=== PATIENT | male | born 1990 | race Caucasian/White ===

== ENCOUNTER 2019-01-14 15:31 | Emergency (ER) | payer OTHER, SELFPAY ==
[2019-01-14] MEDS ORDERED: METOPROLOL TAR 25 MG TAB ONE (16:47)
[2019-01-14] MEDS ORDERED: ASPIRIN 81 MG CHEWABLE TABLET ONE (16:47)
[2019-01-14 16:53] LABS: Absolute Lymphocytes (CBC) 2.6 K/uL (0.7-4.9); Absolute Monocytes 0.7 K/uL (0.1-1.3); Absolute Neutrophil 7.3 K/uL (1.8-8.0); Basophils % 0.5 % (0-1.3); Eosinophils % 1.9 % (0-4.4); Hematocrit 44.5 % (39.6-49.0); Lymphocytes % 24.2 % (15.3-44.8); Monocytes % 6.2 % (3.3-12.3); RBC Red Blood Cell Count 5.09 M/uL (4.33-5.43)
--- NOTE | 2019-01-14 16:53 | RAD REPORT ---
EXAM DESCRIPTION: RAD - Chest Single View - 01/14/2019 4:45 pm CLINICAL HISTORY: CHEST PAIN Chest pain. COMPARISON: Outpt Chest Pa/Lat (2 Views) dated 02/09/2017 FINDINGS: Portable technique limits examination quality. The lungs are underinflated but grossly clear. The heart is normal in size. No displaced fractures. IMPRESSION: No acute intrathoracic process suspected.
[2019-01-14 17:08] LABS: Protime INR 1.03
[2019-01-14 17:11] LABS: ALT/SGPT 50 U/L (12-78); AST/SGOT 24 U/L (15-37); Alkaline Phosphatase 93 U/L (45-117); BUN Blood Urea Nitrogen 13 mg/dL (7-18); Bicarbonate 30 mmol/L (21-32); Bilirubin Direct < 0.1 mg/dL (0-0.2); Bilirubin Total 0.3 mg/dL (0.2-1.0); Glucose Level 106 mg/dL (74-106); Magnesium 2.2 mg/dL (1.8-2.4); NT PRO-BNP 11 pg/mL (<125); Potassium 4.3 mmol/L (3.5-5.1); Sodium Level 139 mmol/L (136-145); Troponin (Emerg Dept Use Only) < 0.02 ng/mL (0.0-0.045)
--- NOTE | 2019-01-14 17:21 | EKG ---
Test Date: 2019-01-14 Test Time: 15:42:42 Commercial Leasing Agent: LILA MEASUREMENT RESULTS: Intervals: Rate: 75 NE: 156 QRSD: 102 QT: 376 QTc: 419 [place]: P: 30 NE: 156 QRS: 107 T: 42 INTERPRETIVE STATEMENTS: Normal sinus rhythm Rightward axis Incomplete right bundle branch block Borderline ECG No previous ECG available for comparison Electronically Signed On 01-14-19 17:20:53 HEEL CURVER by Daryl Yen
--- NOTE | 2019-01-14 17:38 | ER ---
Nurse's Notes [facility] Name: rFansisco Sebastian Age: 28 yrs Sex: Male : 1990 Arrival Date: 01/14/2019 Time: 15:33 Bed 25 Private MD: Diagnosis: Other chest pain;Essential (primary) hypertension;Obesity, unspecified;Tobacco abuse counseling;Tobacco use Presentation: 01/14 15:35 Presenting complaint: Patient states: left-sided chest pain radiating to left shoulder aa5 that began approximately 3 hours ago. Pt denies SOB. Transition of care: patient was not received from another setting of care. Onset of symptoms was December 2018. Risk Assessment: Do you want to hurt yourself or someone else? Patient reports no desire to harm self or others. Initial Sepsis Screen: Does the patient meet any 2 criteria? No. Patient's initial sepsis screen is negative. Does the patient have a suspected source of infection? No. Patient's initial sepsis screen is negative. Care prior to arrival: None. 15:35 Method Of Arrival: Ambulatory aa5 15:35 Acuity: OZZY 3 aa5 Historical: - Allergies: 15:36 No Known Allergies; aa5 - Home Meds: 15:36 None [Active]; aa5 - PMHx: 15:36 None; aa5 - PSHx: 15:36 fungus removal from groin area; aa5 - Immunization history:: Flu vaccine status is unknown. - Social history:: Smoking status: Patient uses tobacco products, smokes one pack cigarettes per day. - Ebola Screening: : No symptoms or risks identified at this time. - Family history:: not pertinent. Screenin:30 Abuse screen: Denies threats or abuse. Denies injuries from another. Nutritional ca1 screening: No deficits noted. Tuberculosis screening: No symptoms or risk factors identified. Fall Risk None identified. Assessment: 16:30 General: Appears in no apparent distress. comfortable, Behavior is calm, cooperative, ca1 appropriate for age. Pain: Complains of pain in chest Pain radiates to left trapezius Pain currently is 0 out of 10 on a pain scale. at worst was 6 out of 10 on a pain scale. Pain began 4 hours ago. Neuro: Level of Consciousness is awake, alert, obeys commands, Oriented to person, place, time, situation. Cardiovascular: Heart tones S1 S2 present Capillary refill < 3 seconds Patient's skin is warm and dry. Respiratory: Airway is patent Respiratory effort is even, unlabored, Respiratory pattern is regular, symmetrical, Breath sounds are clear bilaterally. GI: Abdomen is round non-distended, Bowel sounds present X 4 quads. Abd is soft and non tender X 4 quads. : No signs and/or symptoms were reported regarding the genitourinary system. EENT: No signs and/or symptoms were reported regarding the EENT system. Derm: Skin is intact, Skin is pink, warm \T\ dry. Musculoskeletal: Circulation, motion, and sensation intact. Capillary refill < 3 seconds. 17:35 Reassessment: Patient appears in no apparent distress at this time. Patient and/or ca1 family updated on plan of care and expected duration. Pain level reassessed. Patient is alert, oriented x 3, equal unlabored respirations, skin warm/dry/pink. Patient states feeling better. Vital Signs: 15:36 BP 144 / 101; Pulse 96; Resp 20 S; Temp 98.9(TE); Pulse Ox 100% on R/A; Weight 158.76 aa5 kg (R); Height 6 ft. 3 in. (190.50 cm) (R); Pain 1/10; 16:32 BP 121 / 84; Pulse 71; Resp 18; Pulse Ox 100% on R/A; ca1 15:36 Body Mass Index 43.75 (158.76 kg, 190.50 cm) aa5 ED Course: 15:33 Patient arrived in ED. aa5 15:35 Arm band placed on. aa5 15:36 Triage completed. aa5 16:02 Mahesh Marquez MD is Attending Physician. [facility] 16:04 EKG done, by food technician. reviewed by Mahesh Marquez MD. sm3 16:20 Beryl Dubon, RN is Primary Nurse. ca1 16:30 Patient has correct armband on for positive identification. Placed in gown. Bed in low ca1 position. Call light in reach. Side rails up X 1. quality assurance monitor chassis on. Pulse ox on. NIBP on. Warm blanket given. 16:30 Patient maintains SpO2 saturation greater than 95% on room air. ca1 16:46 Inserted saline lock: 20 gauge in left antecubital area, using aseptic technique. lt1 16:46 Initial lab(s) drawn, by me, sent to lab. lt1 16:49 XRAY Chest (1 view) In Process Unspecified. EDMS 17:36 Chapin Epps MD is Referral Physician. [facility] 17:55 No provider procedures requiring assistance completed. IV discontinued, intact, ca1 bleeding controlled, No redness/swelling at site. Pressure dressing applied. Administered Medications: 16:33 Drug: Lopressor 25 mg Route: PO; ca1 17:51 Follow up: Response: No adverse reaction; Pain is decreased ca1 16:34 Drug: Aspirin Chewable Tablet 324 mg Route: PO; ca1 17:51 Follow up: Response: No adverse reaction; Pain is decreased ca1 Outcome: 17:36 Discharge ordered by MD. [facility] 17:55 Discharged to home ambulatory. ca1 17:55 Condition: stable 17:55 Discharge instructions given to patient, Instructed on discharge instructions, follow up and referral plans. medication usage, Demonstrated understanding of instructions, follow-up care, medications, Prescriptions given X 1. 17:56 Patient left the ED. ca1 Signatures: Dispatcher [employer] EDMS Mahesh Marquez MD MD cha Calderon, Audri, RN RN aa5 Edwige Trimble 3 Beryl Dubon RN RN ca1 Taylor Russell lt1
--- NOTE | 2019-01-14 17:38 | EDPHYS ---
Physician Documentation [facility] Name: Fransisco Sebastian Age: 28 yrs Sex: Male : 1990 Arrival Date: 01/14/2019 Time: 15:33 Bed 25 Private MD: ED Physician Mahesh Marquez HPI: 01/14 16:29 This 28 yrs old Male presents to ER via Ambulatory with complaints of Chest angel Pain. 16:29 The patient or guardian reports chest pain that is located primarily in the anterior angel chest wall, left. The pain radiates to Associated signs and symptoms: The patient has no apparent associated signs or symptoms. The chest pain is described as squeezing. Duration: The patient or guardian reports multiple episodes, with no pattern. Severity of pain: At its worst the pain was mild in the emergency department the pain is unchanged. The patient has not experienced similar symptoms in the past. Historical: - Allergies: 15:36 No Known Allergies; aa5 - Home Meds: 15:36 None [Active]; aa5 - PMHx: 15:36 None; aa5 - PSHx: 15:36 fungus removal from groin area; aa5 - Immunization history:: Flu vaccine status is unknown. - Social history:: Smoking status: Patient uses tobacco products, smokes one pack cigarettes per day. - Ebola Screening: : No symptoms or risks identified at this time. - Family history:: not pertinent. ROS: 16:33 Constitutional: Negative for fever, chills, and weight loss, Eyes: Negative for injury, angel pain, redness, and discharge, ENT: Negative for injury, pain, and discharge, Neck: Negative for injury, pain, and swelling, Respiratory: Negative for shortness of breath, cough, wheezing, and pleuritic chest pain, Abdomen/GI: Negative for abdominal pain, nausea, vomiting, diarrhea, and constipation, Back: Negative for injury and pain, : Negative for injury, bleeding, discharge, and swelling, MS/Extremity: Negative for injury and deformity, Skin: Negative for injury, rash, and discoloration, Neuro: Negative for headache, weakness, numbness, tingling, and seizure, Psych: Negative for depression, anxiety, suicide ideation, homicidal ideation, and hallucinations, Allergy/Immunology: Negative for hives, rash, and allergies, Endocrine: Negative for neck swelling, polydipsia, polyuria, polyphagia, and marked weight changes, Hematologic/Lymphatic: Negative for swollen nodes, abnormal bleeding, and unusual bruising. 16:33 Cardiovascular: Positive for chest pain, of the chest. Exam: 16:29 Constitutional: This is a well developed, well nourished patient who is awake, alert, angel and in no acute distress. Head/Face: Normocephalic, atraumatic. Eyes: Pupils equal round and reactive to light, extra-ocular motions intact. Lids and lashes normal. Conjunctiva and sclera are non-icteric and not injected. Cornea within normal limits. Periorbital areas with no swelling, redness, or edema. ENT: Nares patent. No nasal discharge, no septal abnormalities noted. Tympanic membranes are normal and external auditory canals are clear. Oropharynx with no redness, swelling, or masses, exudates, or evidence of obstruction, uvula midline. Mucous membranes moist. Neck: Trachea midline, no thyromegaly or masses palpated, and no cervical lymphadenopathy. Supple, full range of motion without nuchal rigidity, or vertebral point tenderness. No Meningismus. Chest/axilla: Normal chest wall appearance and motion. Nontender with no deformity. No lesions are appreciated. Cardiovascular: Regular rate and rhythm with a normal S1 and S2. No gallops, murmurs, or rubs. Normal PMI, no JVD. No pulse deficits. Respiratory: Lungs have equal breath sounds bilaterally, clear to auscultation and percussion. No rales, rhonchi or wheezes noted. No increased work of breathing, no retractions or nasal flaring. Abdomen/GI: Soft, non-tender, with normal bowel sounds. No distension or tympany. No guarding or rebound. No evidence of tenderness throughout. Back: No spinal tenderness. No costovertebral tenderness. Full range of motion. Skin: Warm, dry with normal turgor. Normal color with no rashes, no lesions, and no evidence of cellulitis. MS/ Extremity: Pulses equal, no cyanosis. Neurovascular intact. Full, normal range of motion. Neuro: Awake and alert, GCS 15, oriented to person, place, time, and situation. Cranial nerves II-XII grossly intact. Motor strength 5/5 in all extremities. Sensory grossly intact. Cerebellar exam normal. Normal gait. Psych: Awake, alert, with orientation to person, place and time. Behavior, mood, and affect are within normal limits. 16:33 Musculoskeletal/extremity: Circulation is intact in all extremities. Sensation intact. angel Compartment Syndrome exam of affected extremity: is normal. DVT Exam: No signs of deep vein thrombosis. no pain, no swelling, no tenderness, negative Homans' sign noted on exam, no appreciated bluish discoloration, no erythema, no increased warmth. Vital Signs: 15:36 BP 144 / 101; Pulse 96; Resp 20 S; Temp 98.9(TE); Pulse Ox 100% on R/A; Weight 158.76 aa5 kg (R); Height 6 ft. 3 in. (190.50 cm) (R); Pain 1/10; 16:32 BP 121 / 84; Pulse 71; Resp 18; Pulse Ox 100% on R/A; ca1 15:36 Body Mass Index 43.75 (158.76 kg, 190.50 cm) aa5 MDM: 16:02 Patient medically screened. [facility] 16:34 Data reviewed: vital signs, nurses notes, lab test result(s), EKG, radiologic studies, [facility] plain films. 01/14 16:27 Order name: Basic Metabolic Panel; Complete Time: 17:35 [facility] 01/14 16:27 Order name: CBC with Diff; Complete Time: 17:35 [facility] 01/14 16:27 Order name: LFT's; Complete Time: 17:35 [facility] 01/14 16:27 Order name: Magnesium; Complete Time: 17:35 [facility] 01/14 16:27 Order name: NT PRO-BNP; Complete Time: 17:35 [facility] 01/14 16:27 Order name: PT-INR; Complete Time: 17:35 [facility] 01/14 16:27 Order name: Troponin (emerg Dept Use Only); Complete Time: 17:35 [facility] 01/14 16:27 Order name: XRAY Chest (1 view); Complete Time: 17:35 [facility] 01/14 16:27 Order name: EKG; Complete Time: 16:29 [facility] 01/14 16:27 Order name: Cardiac monitoring; Complete Time: 16:32 [facility] 01/14 16:27 Order name: EKG - Nurse/Tech; Complete Time: 16:32 [facility] 01/14 16:27 Order name: D-Dimer; Complete Time: 17:35 [facility] 01/14 16:27 Order name: IV Saline Lock; Complete Time: 16:32 [facility] 01/14 16:27 Order name: Labs collected and sent; Complete Time: 16:32 [facility] 01/14 16:27 Order name: O2 Per Protocol; Complete Time: 16:33 [facility] 01/14 16:27 Order name: O2 Sat Monitoring; Complete Time: 16:33 [facility] Administered Medications: 16:33 Drug: Lopressor 25 mg Route: PO; ca1 17:51 Follow up: Response: No adverse reaction; Pain is decreased ca1 16:34 Drug: Aspirin Chewable Tablet 324 mg Route: PO; ca1 17:51 Follow up: Response: No adverse reaction; Pain is decreased ca1 Disposition: 01/14/19 17:36 Discharged to Home. Impression: Other chest pain, Essential (primary) hypertension, Obesity, unspecified, Tobacco abuse counseling, Tobacco use. - Condition is Stable. - Discharge Instructions: Nonspecific Chest Pain, Hypertension, Obesity, Adult, Steps to Quit Smoking, Smoking Hazards, Nonspecific Chest Pain, Smwc-fw-[id number], Hypertension, Mqwz-to-Kfyb, How to Take Your Blood Pressure, Ixyj-fe-Cvfk, Aspirin and Your Heart, Managing Your Hypertension. - Prescriptions for Toprol XL 25 mg Oral Tablet - take 1 tablet by ORAL route once daily; 20 tablet. - Medication Reconciliation Form, Thank You Letter, Antibiotic Education, Prescription Opioid Use form. - Follow up: Private Physician; When: 2 - 3 days; Reason: Recheck today's complaints, Continuance of care, Re-evaluation by your physician. Follow up: Chapin Epps; When: 2 - 3 days; Reason: Recheck today's complaints, Re-evaluation by your physician. - Problem is new. - Symptoms have improved. Signatures: Dispatcher [employer] EDRI Mahesh Marquez MD MD cha Calderon, Audri, RN RN aa5 Beryl Dubon RN RN ca1 Corrections: (The following items were deleted from the chart) 17:56 17:36 01/14/2019 17:36 Discharged to Home. Impression: Other chest pain; Essential ca1 (primary) hypertension; Obesity, unspecified; Tobacco abuse counseling; Tobacco use. Condition is Stable. Discharge Instructions: Nonspecific Chest Pain, Hypertension, Obesity, Adult, Steps to Quit Smoking, Smoking Hazards, Nonspecific Chest Pain, Gwpm-ln-Cyvh, Hypertension, Fnpt-xh-Bodh, How to Take Your Blood Pressure, Urua-ta-Avjh, Aspirin and Your Heart, Managing Your Hypertension. Prescriptions for Toprol XL 25 mg Oral Tablet - take 1 tablet by ORAL route once daily; 20 tablet. and Forms are Medication Reconciliation Form, Thank You Letter, Antibiotic Education, Prescription Opioid Use. Follow up: Private Physician; When: 2 - 3 days; Reason: Recheck today's complaints, Continuance of care, Re-evaluation by your physician. Follow up: Chapin Epps; When: 2 - 3 days; Reason: Recheck today's complaints, Re-evaluation by your physician. Problem is new. Symptoms have improved. angel
== END 2019-01-14 17:56 | disposition home or self-care (01) ==
LOC: ER 15:31
DX: R07.89 Other chest pain (principal); I10 Essential (primary) hypertension; E66.9 Obesity, unspecified; Z68.41 Body mass index [BMI] 40.0-44.9, adult; F17.210 Nicotine dependence, cigarettes, uncomplicated; Z71.6 Tobacco abuse counseling
CPT/HCPCS: 36415; 71045; 80048; 80076; 83735; 83880; 84484; 85025; 85379; 85610; 93005; 99285

== ENCOUNTER 2019-10-01 18:06 | Emergency (ER) | payer OTHER ==
[2019-10-01] MEDS ORDERED: ACETAMINOPHEN 500 MG TAB ONE (19:49)
[2019-10-01] MEDS ORDERED: IBUPROFEN 400 MG TAB ONE (19:49)
[2019-10-01] MEDS ORDERED: IBUPROFEN 200 MG TAB PO ONE (19:49)
[2019-10-01 20:21] LABS: Urine Blood NEGATIVE (NEG); Urine Glucose NEGATIVE (NEG); Urine Protein NEGATIVE (NEG); Urine Specific Gravity >1.030 (1.005-1.030)
[2019-10-01 20:50] LABS: Urine Bacteria <20 /HPF (NONE SEEN); Urine Culture Reflex Order NOT NEEDED; Urine Mucus SLIGHT /HPF (NONE SEEN); Urine RBC <5 /HPF (NONE SEEN)
--- NOTE | 2019-10-01 21:02 | RAD REPORT ---
EXAM DESCRIPTION: RAD - Thoracic Spine Ap/Lat - 10/01/2019 8:29 pm CLINICAL HISTORY: Persistent midthoracic pain COMPARISON: None. FINDINGS: AP & lateral views of the thoracic spine were obtained. Thoracic bodies are normal in heig ht and alignment. There are no acute or destructive bony processes seen. No paraspinal masses are rozina ntified. No significant disc space narrowing. Moderate endplate spurring changes are present in the mid and lo wer thoracic spine. IMPRESSION: Endplate spurring changes are present in the lower thoracic spine. No acute finding seen .
--- NOTE | 2019-10-01 21:03 | RAD REPORT ---
EXAM DESCRIPTION: RAD - Lumbar Spine 3 Views - 10/01/2019 8:17 pm CLINICAL HISTORY: Midthoracic pain extending into the lumbar spine COMPARISON: None. FINDINGS: A three-view lumbar spine examination was performed. Lumbar bodies are normal in height an d alignment. No fracture or acute bony process seen. No disc space narrowing. Endplate spurring neal es are present in T10 -L1. No pars defects identified. IMPRESSION: Patient has prominent for age endplate spurring T10-L1 region. No acute finding.
--- NOTE | 2019-10-01 21:46 | EDPHYS ---
Physician Documentation [facility] Name: Fransisco Sebastian Age: 29 yrs Sex: Male : 1990 Arrival Date: 10/01/2019 Time: 18:10 Bed 20 Private MD: ED Physician Justin Landers HPI: 10/01 21:46 This 29 yrs old Male presents to ER via Ambulatory with complaints of Back wa Pain. 21:46 The patient presents with pain that is acute, with no known mechanism of injury. The wa symptoms are located in the low back. Onset: The symptoms/episode began/occurred 2 day(s) ago. The pain does not radiate. Associated signs and symptoms: The patient has no apparent associated signs or symptoms. The problem was sustained from unknown cause. Modifying factors: The patient symptoms are alleviated by nothing, the patient symptoms are aggravated by movement. Severity of symptoms: At their worst the symptoms were moderate. The patient has experienced similar episodes in the past, a few times. The patient has not recently seen a physician. Historical: - Allergies: 18:15 No Known Allergies; hb - Home Meds: 18:15 None [Active]; hb - PMHx: 18:15 None; hb - PSHx: 18:15 fungus removal from groin area; hb - Immunization history:: Adult Immunizations up to date. - Social history:: Smoking status: Patient uses tobacco products, smokes one-half pack cigarettes per day. - Ebola Screening: : No symptoms or risks identified at this time. - Family history:: not pertinent. - Hospitalizations: : No recent hospitalization is reported. ROS: 21:48 Constitutional: Negative for fever, chills, and weight loss, Eyes: Negative for injury, wa pain, redness, and discharge, ENT: Negative for injury, pain, and discharge, Neck: Negative for injury, pain, and swelling, Cardiovascular: Negative for chest pain, palpitations, and edema, Respiratory: Negative for shortness of breath, cough, wheezing, and pleuritic chest pain, Abdomen/GI: Negative for abdominal pain, nausea, vomiting, diarrhea, and constipation, : Negative for injury, bleeding, discharge, and swelling, MS/Extremity: Negative for injury and deformity, Skin: Negative for injury, rash, and discoloration, Neuro: Negative for headache, weakness, numbness, tingling, and seizure. 21:48 Back: Positive for pain at rest, pain with movement, of the lumbar area and sacrum. 21:48 All other systems are negative. Exam: 21:48 Constitutional: This is a well developed, well nourished patient who is awake, alert, wa and in no acute distress. 21:48 Head/Face: Normocephalic, atraumatic. Eyes: Pupils equal round and reactive to light, extra-ocular motions intact. Lids and lashes normal. Conjunctiva and sclera are non-icteric and not injected. Cornea within normal limits. Periorbital areas with no swelling, redness, or edema. ENT: Nares patent. No nasal discharge, no septal abnormalities noted. Tympanic membranes are normal and external auditory canals are clear. Oropharynx with no redness, swelling, or masses, exudates, or evidence of obstruction, uvula midline. Mucous membranes moist. Neck: Trachea midline, no thyromegaly or masses palpated, and no cervical lymphadenopathy. Supple, full range of motion without nuchal rigidity, or vertebral point tenderness. No Meningismus. Chest/axilla: Normal chest wall appearance and motion. Nontender with no deformity. No lesions are appreciated. Cardiovascular: Regular rate and rhythm with a normal S1 and S2. No gallops, murmurs, or rubs. Normal PMI, no JVD. No pulse deficits. Respiratory: Lungs have equal breath sounds bilaterally, clear to auscultation and percussion. No rales, rhonchi or wheezes noted. No increased work of breathing, no retractions or nasal flaring. Abdomen/GI: Soft, non-tender, with normal bowel sounds. No distension or tympany. No guarding or rebound. No evidence of tenderness throughout. Skin: Warm, dry with normal turgor. Normal color with no rashes, no lesions, and no evidence of cellulitis. MS/ Extremity: Pulses equal, no cyanosis. Neurovascular intact. Full, normal range of motion. Neuro: Awake and alert, GCS 15, oriented to person, place, time, and situation. Cranial nerves II-XII grossly intact. Motor strength 5/5 in all extremities. Sensory grossly intact. Cerebellar exam normal. Normal gait. 21:48 Constitutional: The patient appears obese, tall male 21:48 Back: pain, that is moderate, of the lumbar area and sacrum. Vital Signs: 18:15 BP 168 / 108; Pulse 79; Resp 20; Temp 97.9; Pulse Ox 100% on R/A; Weight 151.05 kg; hb Height 6 ft. 3 in. (190.50 cm); Pain 6/10; 19:11 BP 147 / 96; Pulse 82; Resp 18; Pulse Ox 99% on R/A; wh 20:45 BP 150 / 98; Pulse 76; Resp 18; Pulse Ox 97% on R/A; wh 21:50 BP 134 / 88; Pulse 69; Resp 18; Pulse Ox 95% on R/A; wh 18:15 Body Mass Index 41.62 (151.05 kg, 190.50 cm) hb MDM: 19:14 Patient medically screened. wa 21:49 Differential diagnosis: sprain, discussed treatment modalities. pt insisted on X-rays hi since he says he's been having this pain on and off for several years. pain control. x-rays. UA. reassess. Data reviewed: vital signs, nurses notes. Test interpretation: by ED physician or midlevel provider: L/S spine xrays: no acute process to explain pain. . Response to treatment: the patient's symptoms have markedly improved after treatment. 10/01 19:36 Order name: Urine Microscopic Only hi 10/01 19:36 Order name: Urine Microscopic Only; Complete Time: 20:57 EDVT 10/01 19:37 Order name: Lumbar Spine (3 Views) XRAY; Complete Time: 21:26 hi 10/01 19:37 Order name: XRAY Thoracic Spine (Ap/lat); Complete Time: 21:25 hi 10/01 20:01 Order name: Urine Dipstick--Ancillary (enter results); Complete Time: 20:57 cm6 10/01 19:35 Order name: Urine Dipstick-Ancillary (obtain specimen); Complete Time: 19:54 hi Administered Medications: 19:52 Drug: Motrin 600 mg Route: PO; 21:51 Follow up: Response: No adverse reaction; Pain is decreased 19:54 Drug: Tylenol 1000 mg Route: PO; 21:51 Follow up: Response: No adverse reaction; Pain is decreased Disposition: 10/01/19 21:45 Discharged to Home. Impression: acute low back pain. - Condition is Stable. - Discharge Instructions: Back Pain, Adult, Elyp-go-Hhua. - Prescriptions for Valium 5 mg Oral Tablet - take 1 tablet by ORAL route every 8 hours As needed; 20 tablet. Ibuprofen 600 mg Oral Tablet - take 1 tablet by ORAL route every 6 hours As needed take with food; 30 tablet. - Medication Reconciliation Form, Thank You Letter, Antibiotic Education, Prescription Opioid Use form. - Follow up: Samuel Vizcaino MD; When: 2 - 3 days; Reason: Recheck today's complaints. - Problem is new. - Symptoms have improved. - Notes: take medication as prescribed. follow up with the bone doctor as discussed Signatures: Dispatcher [employer] EDMS Sophie Castellano RN RN Vika Wiley Justin Landers MD MD wa Corrections: (The following items were deleted from the chart) 21:52 21:45 10/01/2019 21:45 Discharged to Home. Impression: acute low back pain. Condition wh is Stable. Forms are Medication Reconciliation Form, Thank You Letter, Antibiotic Education, Prescription Opioid Use. Follow up: Samuel Vizcaino; When: 2 - 3 days; Reason: Recheck today's complaints. Problem is new. Symptoms have improved. wa
--- NOTE | 2019-10-01 21:46 | ER ---
Nurse's Notes [facility] Name: Fransisco Sebastian Age: 29 yrs Sex: Male : 1990 Arrival Date: 10/01/2019 Time: 18:10 Bed 20 Private MD: Diagnosis: acute low back pain Presentation: 10/01 18:13 Presenting complaint: Mid back pain that radiates to lower back 6/10 x 2 weeks. Denies hb injury/urinary s/s. Transition of care: patient was not received from another setting of care. Onset of symptoms was October 01, 2019. Risk Assessment: Do you want to hurt yourself or someone else? Patient reports no desire to harm self or others. Initial Sepsis Screen: Does the patient meet any 2 criteria? No. Patient's initial sepsis screen is negative. Does the patient have a suspected source of infection? No. Patient's initial sepsis screen is negative. Care prior to arrival: Medication(s) given: Aleve at 1200. 18:13 Method Of Arrival: Ambulatory hb 18:13 Acuity: OZZY 4 hb Historical: - Allergies: 18:15 No Known Allergies; hb - Home Meds: 18:15 None [Active]; hb - PMHx: 18:15 None; hb - PSHx: 18:15 fungus removal from groin area; hb - Immunization history:: Adult Immunizations up to date. - Social history:: Smoking status: Patient uses tobacco products, smokes one-half pack cigarettes per day. - Ebola Screening: : No symptoms or risks identified at this time. - Family history:: not pertinent. - Hospitalizations: : No recent hospitalization is reported. Screenin:10 Abuse screen: Denies threats or abuse. Denies injuries from another. Nutritional wh screening: No deficits noted. Tuberculosis screening: No symptoms or risk factors identified. Fall Risk None identified. Assessment: 19:09 General: Appears in no apparent distress. Behavior is calm, cooperative, appropriate wh for age. Pain: Complains of pain in Lower back pain Pain does not radiate. Pain currently is 4 out of 10 on a pain scale. Quality of pain is described as pinching, Pain began this day. Neuro: Level of Consciousness is awake, alert, obeys commands, Oriented to person, place, time, situation, Appropriate for age. Cardiovascular: Capillary refill < 3 seconds. Respiratory: Airway is patent Respiratory effort is even, unlabored, Respiratory pattern is regular, symmetrical. GI: Abdomen is flat, non-distended. : No signs and/or symptoms were reported regarding the genitourinary system. EENT: No signs and/or symptoms were reported regarding the EENT system. Derm: Skin is intact, is healthy with good turgor, Skin is pink, warm \T\ dry. normal. Musculoskeletal: Circulation, motion, and sensation intact. 20:30 Reassessment: Patient appears in no apparent distress at this time. No changes from previously documented assessment. Patient and/or family updated on plan of care and expected duration. Pain level reassessed. Patient is alert, oriented x 3, equal unlabored respirations, skin warm/dry/pink. 21:50 Reassessment: Patient appears in no apparent distress at this time. No changes from previously documented assessment. Patient and/or family updated on plan of care and expected duration. Pain level reassessed. Patient is alert, oriented x 3, equal unlabored respirations, skin warm/dry/pink. Patient states feeling better. Patient states symptoms have improved. Vital Signs: 18:15 BP 168 / 108; Pulse 79; Resp 20; Temp 97.9; Pulse Ox 100% on R/A; Weight 151.05 kg; hb Height 6 ft. 3 in. (190.50 cm); Pain 6/10; 19:11 BP 147 / 96; Pulse 82; Resp 18; Pulse Ox 99% on R/A; wh 20:45 BP 150 / 98; Pulse 76; Resp 18; Pulse Ox 97% on R/A; wh 21:50 BP 134 / 88; Pulse 69; Resp 18; Pulse Ox 95% on R/A; wh 18:15 Body Mass Index 41.62 (151.05 kg, 190.50 cm) ED Course: 18:10 Patient arrived in ED. as 18:14 Triage completed. hb 18:15 Arm band placed on. hb 19:04 Vika Wiley is Primary Nurse. 19:10 Patient has correct armband on for positive identification. Bed in low position. Call light in reach. Side rails up X 1. Pulse ox on. NIBP on. 19:14 Justin Landers MD is Attending Physician. wa 20:18 Lumbar Spine (3 Views) XRAY In Process Unspecified. EDMS 20:29 XRAY Thoracic Spine (Ap/lat) In Process Unspecified. EDLA 21:42 Samuel Vizcaino MD is Referral Physician. ri 21:51 No provider procedures requiring assistance completed. Patient did not have IV access during this emergency room visit. Administered Medications: 19:52 Drug: Motrin 600 mg Route: PO; 21:51 Follow up: Response: No adverse reaction; Pain is decreased 19:54 Drug: Tylenol 1000 mg Route: PO; 21:51 Follow up: Response: No adverse reaction; Pain is decreased Outcome: 21:45 Discharge ordered by . ri 21:51 Discharged to home ambulatory. 21:51 Condition: stable 21:51 Discharge instructions given to patient, Instructed on discharge instructions, follow up and referral plans. no drinking with medication, no driving heavy equipment, medication usage, POC Back Pain Demonstrated understanding of instructions, follow-up care, medications, POC Prescriptions given X 2. 21:52 Patient left the ED. Signatures: Dispatcher [employer] [place] Tianna Payne Heather, Vika Gilbert RN Justin Landers MD MD ri
[2019-10-02 01:05] VITALS: TEMP 97.9
[2019-10-02 01:09] VITALS: BP 134/88; O2SAT 95
== END 2019-10-01 21:52 | disposition home or self-care (01) ==
LOC: ER 18:06
DX: M54.5 Low back pain (principal); F17.210 Nicotine dependence, cigarettes, uncomplicated
CPT/HCPCS: 72070; 72100; 81003; 81015; 99284

== ENCOUNTER 2023-06-06 16:51 | Emergency (ER) | payer BC ==
--- OUTSIDE RECORDS SUMMARY | 2023-06-06 16:54 | XMS REPORT | Continuity of Care Document ---
:1990 Author Organization [facility] t Address [address] [facility] [address] [place] [address] Care Team Providers Name Role Phone MOISES DUNAWAY Attending Clinician Unavailable AB SEGURA Admitting Clinician Unavailable Payers Payer Name Policy Type Policy Number Effective Date Expiration Date S ying BCBSTX PPO AND [id number] 2021 00:00:00 OUT OF STATE Problems This patient has no known problems. Allergies, Adverse Reactions, Alerts This patient has no known allergies or adverse reactions. Medications This patient has no known medications. Procedures This patient has no known procedures. Encounters Start End Encounter Admission Attending Care Care Encounter Source Date/Time Date/Time Type Type Clinicians Facility Department ID 2022-11-03 Outpatient [facility] [id number] [place] 07:18:32 [id number] Health 2022-11-03 2022-11-04 Emergency E EMELYN [facility] [address] [facility] 07:15:00 01:36:00 MOISES Results This patient has no known results.
[2023-06-06 17:12] LABS: Absolute Lymphocytes (CBC) 2.5 K/uL (0.7-4.9); Hematocrit 45.7 % (39.6-49.0); Lymphocytes % 15.8 % (15.3-44.8); MCV 87.1 fL (80-100); MPV 10.2 fL (7.6-11.3); RBC Red Blood Cell Count 5.25 M/uL (4.33-5.43)
[2023-06-06 17:21] LABS: Protime INR 0.97
[2023-06-06] MEDS ORDERED: NA CHLORIDE 0.9% 1,000 ML ONE (17:31)
[2023-06-06 17:34] LABS: Albumin 4.4 g/dL (3.4-5.0); Bilirubin Direct 0.2 mg/dL (0-0.2); Bilirubin Indirect, Calculated 0.4 mg/dL (0.2-0.8); Bilirubin Total 0.6 mg/dL (0.2-1.0); Magnesium 1.9 mg/dL (1.6-2.4); Potassium 3.8 mEq/L (3.5-5.1); Protein, Total 8.6 g/dL (6.4-8.2); Troponin High Sensitivity 6.9 pg/mL (<58.9)
[2023-06-06] MEDS ORDERED: Ringers Lactate 1,000 ML IV ONE (17:55)
--- NOTE | 2023-06-06 18:07 | RAD REPORT ---
EXAM DESCRIPTION: Ronak Single View06/06/2023 5:35 pm CLINICAL HISTORY: muscle cramps COMPARISON: Chest Single View dated 01/14/2019 TECHNIQUE: Portable AP view of the chest. FINDINGS: Decreased inspiratory effort limits evaluation. The lungs are clear apart from stable righ t basilar airspace opacities. No pneumothorax or effusion. The cardiomediastinal contours are unrema rkable. IMPRESSION: No acute cardiopulmonary process.
[2023-06-06 18:38] LABS: Specific Gravity > 1.030 (1.005-1.030); Urine Bacteria <20 /HPF (<20); Urine Bilirubin NEGATIVE (Negative); Urine Blood Negative (Negative); Urine Clarity Extremely Turbid (Clear); Urine Color Yellow (Yellow); Urine Crystals Unidentified Few /HPF (None Seen); Urine Glucose NEGATIVE (Negative); Urine Mucus 4+ /HPF (None Seen); Urine Protein 2+ (Negative); Urine Urobilinogen 1+ (Normal); Urine WBC Clump Occasional /HPF (None Seen); Urine pH 5.5 (5.0-7.0)
--- NOTE | 2023-06-06 18:49 | ER ---
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 EMS states that pt had to be held up by his coworkers. EMS also reports that they placed ice packets on patient to cool him down and also put some water on him. Coronavirus screen: Vaccine status: Patient reports being unvaccinated. Client denies travel out of the [place] in the last 14 days. Ebola Screen: Patient denies travel to an Ebola-affected area in the 21 days before illness onset. No symptoms or risks identified at this time. Initial Sepsis Screen: Does the patient meet any 2 criteria? No. Patient's initial sepsis screen is negative. Does the patient have a suspected source of infection? No. Patient's initial sepsis screen is negative. Risk Assessment: Do you want to hurt yourself or someone else? Patient reports no desire to harm self or others. Onset of symptoms was June 06, 2023. 16:54 Method Of Arrival: EMS: [facility] 16:54 Acuity: OZZY 3 cm10 17:01 Chief complaint: Patient states: that he is having cramps all over. cm10 Triage Assessment: 17:00 General: Appears in no apparent distress. comfortable, Behavior is calm, cooperative. cm10 Pain: Complains of pain in Generalized Pain does not radiate. Pain currently is 1 out of 10 on a pain scale. Quality of pain is described as crampy. Neuro: No deficits noted. Level of Consciousness is awake, alert, obeys commands, Oriented to person, place, time, situation. Cardiovascular: No deficits noted. Capillary refill < 3 seconds. Respiratory: No deficits noted. Airway is patent Respiratory effort is even, unlabored, Respiratory pattern is regular, symmetrical. Derm: No deficits noted. Skin is intact, Skin is pink, warm \T\ dry. Historical: - Allergies: 16:58 No Known Allergies; cm10 - Home Meds: 16:58 Metformin Oral [Active]; Lisinopril Oral [Active]; Fluoxetine Oral [Active]; cm10 - PMHx: 16:59 Hypertensive disorder; Depressive disorder; cm10 - Immunization history:: Adult Immunizations unknown. - Social history:: Smoking status: Patient reports the use of cigarette tobacco products, smokes one pack cigarettes per day. Screenin:02 [facility] ED Fall Risk Assessment (Adult) History of falling in the last 3 months, cm10 including since admission Yes- physiologic fall (2 pts) Confusion or Disorientation No (0 pts) Intoxicated or Sedated No (0 pts) Impaired Gait No (0 pts) Mobility Assist Device Used No (0 pt) Altered Elimination No (0 pt) Score/Fall Risk Level 0 - 2 = Low Risk Oriented to surroundings, Maintained a safe environment, Hourly rounding (assess needs \T\ fall precautionary measures) done. Abuse screen: Denies threats or abuse. Denies injuries from another. Nutritional screening: No deficits noted. Tuberculosis screening: No symptoms or risk factors identified. Assessment: 17:01 Reassessment: See triage assessment. cm10 17:02 Cardiovascular: Rhythm is regular. cm10 19:20 Reassessment: Patient is alert, oriented x 3, equal unlabored respirations, skin cm10 warm/dry/pink. Patient states feeling better. Patient states symptoms have improved. Vital Signs: 16:54 BP 107 / 63; Pulse 112; Resp 18; Temp 98.4; Pulse Ox 94% on R/A; Weight 176.9 kg; cm10 Height 6 ft. 3 in. ; Pain 1/10; 18:00 BP 116 / 67; Pulse 81; Resp 16; Pulse Ox 98% ; cm10 18:30 BP 119 / 96; Pulse 86; Resp 18; Pulse Ox 98% ; cm10 18:30 BP 128 / 67; Pulse 79; Resp 18; Pulse Ox 100% on R/A; cm10 16:54 Body Mass Index 48.75 (176.90 kg, 190.5 cm) cm10 16:54 Pain Scale: Adult cm10 ED Course: 16:52 Patient arrived in ED. snw 16:52 Brigida Huynh FNP-C is PHCP. snw 16:52 Imer Sheldon DO is Attending Physician. snw 16:52 Feliz Menezes MD is Attending Physician. snw 16:54 Kasey Payne, SILVA is Primary Nurse. cm10 16:58 Triage completed. cm10 17:01 Arm band placed on Patient placed in an exam room, on a stretcher. cm10 17:02 Patient has correct armband on for positive identification. Placed in gown. Bed in low cm10 position. Call light in reach. Side rails up X 1. Client placed on continuous cardiac and pulse oximetry monitoring. NIBP monitoring applied. 17:03 Inserted saline lock: 20 gauge in left antecubital area, using aseptic technique. Blood rs5 collected. 17:06 Basic Metabolic Panel Sent. cm10 17:06 CBC with Diff Sent. cm10 17:06 LFT's Sent. cm10 17:06 Magnesium Sent. cm10 17:06 NT PRO-BNP Sent. cm10 17:06 PT-INR Sent. cm10 17:06 Troponin HS Sent. cm10 17:06 CPK Sent. cm10 17:06 Initial lab(s) drawn, by ED staff, sent to lab. cm10 17:37 XRAY Chest (1 view) In Process Unspecified. EDMS 18:20 Urine W/Microscopic (UAM) Sent. cm10 19:21 Provided Education on: N/A. cm10 19:21 No provider procedures requiring assistance completed. IV discontinued, intact, cm10 bleeding controlled, No redness/swelling at site. Pressure dressing applied. Administered Medications: 17:24 Drug: NS 0.9% IV 1000 ml Route: IV; Rate: 1 bolus; Site: right antecubital; ss 18:31 Follow up: Response: No adverse reaction; IV Status: Completed infusion; IV Intake: cm10 1000ml 18:31 Drug: Lactated Ringers Solution IV 1000 ml Route: IV; Rate: 1000 bolus; Site: right cm10 antecubital; 19:20 Follow up: Response: No adverse reaction; IV Status: Completed infusion; IV Intake: cm10 1000ml Medication: 17:01 VIS not applicable for this client. cm10 Intake: 18:31 IV: 1000ml; Total: 1000ml. cm10 19:20 IV: 1000ml; Total: 2000ml. cm10 Outcome: 18:48 Discharge ordered by . snw 19:22 Discharged to home ambulatory, with significant other. cm10 19:22 Condition: good 19:22 Discharge instructions given to patient, Instructed on discharge instructions, follow up and referral plans. Demonstrated understanding of instructions, follow-up care. 19:22 Patient left the ED. cm10 Signatures: Dispatcher [employer] EDMS Brigida Huynh, ADDY-C RN MED SURG-Csnw Vidhi Montes RN RN Javed Crawley rs5 Kasey Payne RN RN cm10
--- NOTE | 2023-06-06 18:49 | EDPHYS ---
Physician Documentation [facility] Name: Fransisco Sbeastian Age: 33 yrs Sex: Male : 1990 Arrival Date: 06/06/2023 Time: 16:51 Bed 11 Private MD: ED Physician Feliz Menezes HPI: 06/06 16:57 This 33 yrs old Male presents to ER via Unassigned with complaints of heat exhaustion. 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 Multiple breaks but pt went to his truck as snw he felt overheated, states he became dizzy, nauseated, and awoke to coworkers holding him up. Onset: The symptoms/episode began/occurred suddenly. Severity of symptoms: At their worst the symptoms were moderate in the emergency department the symptoms are unchanged. The patient has not experienced similar symptoms in the past. It is unknown whether or not the patient has recently seen a physician. Historical: - Allergies: 16:58 No Known Allergies; cm10 - Home Meds: 16:58 Metformin Oral [Active]; Lisinopril Oral [Active]; Fluoxetine Oral [Active]; cm10 - PMHx: 16:59 Hypertensive disorder; Depressive disorder; cm10 - Immunization history:: Adult Immunizations unknown. - Social history:: Smoking status: Patient reports the use of cigarette tobacco products, smokes one pack cigarettes per day. ROS: 16:56 Constitutional: Negative for fever, chills, and weight loss, Eyes: Negative for injury, snw pain, redness, and discharge, ENT: Negative for injury, pain, and discharge, Neck: Negative for injury, pain, and swelling, Cardiovascular: Negative for chest pain, palpitations, and edema, Respiratory: Negative for shortness of breath, cough, wheezing, and pleuritic chest pain. 16:56 Back: Negative for injury and pain, : Negative for injury, bleeding, discharge, and swelling. 16:56 Skin: Negative for injury, rash, and discoloration. 16:56 Psych: Negative for depression, anxiety, suicide ideation, homicidal ideation, and hallucinations. 16:56 Abdomen/GI: Positive for abdominal cramps. 16:56 MS/extremity: Positive for muscle spasms. 16:56 Neuro: Positive for dizziness, tinnitus. Exam: 16:55 Constitutional: This is a well developed, well nourished patient who is awake, alert, snw and in no acute distress. Head/Face: Normocephalic, atraumatic. Eyes: Pupils equal round and reactive to light, extra-ocular motions intact. Lids and lashes normal. Conjunctiva and sclera are non-icteric and not injected. Cornea within normal limits. Periorbital areas with no swelling, redness, or edema. ENT: Nares patent. No nasal discharge, no septal abnormalities noted. Tympanic membranes are normal and external auditory canals are clear. Oropharynx with no redness, swelling, or masses, exudates, or evidence of obstruction, uvula midline. Mucous membranes moist. Neck: Trachea midline, no thyromegaly or masses palpated, and no cervical lymphadenopathy. Supple, full range of motion without nuchal rigidity, or vertebral point tenderness. No Meningismus. Chest/axilla: Normal chest wall appearance and motion. Nontender with no deformity. No lesions are appreciated. Cardiovascular: Regular rate and rhythm with a normal S1 and S2. No gallops, murmurs, or rubs. Normal PMI, no JVD. No pulse deficits. Respiratory: Lungs have equal breath sounds bilaterally, clear to auscultation and percussion. No rales, rhonchi or wheezes noted. No increased work of breathing, no retractions or nasal flaring. Abdomen/GI: Soft, non-tender, with normal bowel sounds. No distension or tympany. No guarding or rebound. No evidence of tenderness throughout. Back: No spinal tenderness. No costovertebral tenderness. Full range of motion. MS/ Extremity: Pulses equal, no cyanosis. Neurovascular intact. Full, normal range of motion. Neuro: Awake and alert, GCS 15, oriented to person, place, time, and situation. Cranial nerves II-XII grossly intact. Motor strength 5/5 in all extremities. Sensory grossly intact. Cerebellar exam normal. Normal gait. Psych: Awake, alert, with orientation to person, place and time. Behavior, mood, and affect are within normal limits. 16:55 Skin: Appearance: normal except for affected area, + diaphoresis. Vital Signs: 16:54 BP 107 / 63; Pulse 112; Resp 18; Temp 98.4; Pulse Ox 94% on R/A; Weight 176.9 kg; cm10 Height 6 ft. 3 in. ; Pain 1/10; 18:00 BP 116 / 67; Pulse 81; Resp 16; Pulse Ox 98% ; cm10 18:30 BP 119 / 96; Pulse 86; Resp 18; Pulse Ox 98% ; cm10 18:30 BP 128 / 67; Pulse 79; Resp 18; Pulse Ox 100% on R/A; cm10 16:54 Body Mass Index 48.75 (176.90 kg, 190.5 cm) cm10 16:54 Pain Scale: Adult cm10 MDM: 16:52 Patient medically screened. snw 17:32 Differential Diagnosis altered mental status, heat exhaustion, heat stroke. Data snw reviewed: vital signs, nurses notes, lab test result(s), EKG. Counseling: I had a detailed discussion with the patient and/or guardian regarding: the historical points, exam findings, and any diagnostic results supporting the discharge/admit diagnosis, lab results, radiology results, the need for outpatient follow up, to return to the emergency department if symptoms worsen or persist or if there are any questions or concerns that arise at home. Special discussion: Based on the history and exam findings, there is no indication for further emergent testing or inpatient evaluation. I discussed with the patient/guardian the need to see the primary care provider for further evaluation of the symptoms. ED course: Spoke with Dr. Errol AZAR for [facility]), will call with any abnormalities at [phone]. 06/06 16:59 Order name: Basic Metabolic Panel; Complete Time: 17:36 snw 06/06 16:59 Order name: CBC with Diff; Complete Time: 17:19 snw 06/06 16:59 Order name: LFT's; Complete Time: 17:36 snw 06/06 16:59 Order name: Magnesium; Complete Time: 17:36 snw 06/06 16:59 Order name: NT PRO-BNP; Complete Time: 17:36 snw 06/06 16:59 Order name: PT-INR; Complete Time: 17:54 snw 06/06 16:59 Order name: Troponin HS; Complete Time: 17:36 snw 06/06 16:59 Order name: CPK; Complete Time: 17:36 snw 06/06 17:55 Order name: Urine W/Microscopic (UAM); Complete Time: 18:39 snw 06/06 18:41 Order name: Urine Culture EDMS 06/06 16:59 Order name: XRAY Chest (1 view); Complete Time: 18:19 snw 06/06 16:59 Order name: EKG; Complete Time: 17:00 snw 06/06 16:59 Order name: Cardiac monitoring; Complete Time: 17:03 snw 06/06 16:59 Order name: EKG - Nurse/Tech; Complete Time: 17:03 snw 06/06 16:59 Order name: IV Saline Lock; Complete Time: 17:03 snw 06/06 16:59 Order name: Labs collected and sent; Complete Time: 17:03 snw 06/06 16:59 Order name: O2 Per Protocol; Complete Time: 17:03 snw 06/06 16:59 Order name: O2 Sat Monitoring; Complete Time: 17:03 snw EC:13 Rate is 108 beats/min. Rhythm is regular. QRS Carr is Normal. T waves are Inverted in snw lead aVR. Clinical impression: Sinus tachycardia. Administered Medications: 17:24 Drug: NS 0.9% IV 1000 ml Route: IV; Rate: 1 bolus; Site: right antecubital; ss 18:31 Follow up: Response: No adverse reaction; IV Status: Completed infusion; IV Intake: cm10 1000ml 18:31 Drug: Lactated Ringers Solution IV 1000 ml Route: IV; Rate: 1000 bolus; Site: right cm10 antecubital; 19:20 Follow up: Response: No adverse reaction; IV Status: Completed infusion; IV Intake: cm10 1000ml Disposition: 20:32 I agree with the assessment and plan of care. I reviewed the patient's care provided by jenifer the Advanced Practice Provider and agree with the diagnosis and treatment plan. Disposition Summary: 06/06/23 18:48 Discharge Ordered Location: Home snw Condition: Stable snw Diagnosis - Heat exhaustion, unspecified - chronic medications increased susceptibility snw - Volume depletion, unspecified snw Followup: snw - With: Emergency Department - When: As needed - Reason: Worsening of condition Followup: snw - With: Private Physician - When: 1 - 2 days - Reason: Recheck today's complaints, Continuance of care, Re-evaluation by your physician Discharge Instructions: - Discharge Summary Sheet snw - Dehydration, Adult snw - Acute Kidney Injury, Adult snw - Heat Exhaustion snw - Rehydration, Adult snw - Preventing Heat Exhaustion, Adult snw Forms: - Work release form snw - Medication Reconciliation Form snw - Thank You Letter snw - Antibiotic Education snw - Prescription Opioid Use snw - Patient Portal [email or web address].htm snw Signatures: Dispatcher [employer] Brigida Faith, PHARMACY COORDINATOR-C PHARMACY COORDINATOR-Csnw Vidhi Montes RN RN ss Feliz Menezes MD MD [id number] Kasey Payne RN RN cm10
[2023-06-06 20:20] VITALS: TEMP 98.4
[2023-06-06 20:24] VITALS: BP 128/67; O2SAT 100
--- NOTE | 2023-06-07 17:03 | EKG ---
Test Date: 2023-06-06 Test Time: 17:10:02 [employer] Ware Maker: BIANCA MEASUREMENT RESULTS: Intervals: Rate: 108 WI: 142 QRSD: 92 QT: 332 QTc: 444 [place]: P: 50 WI: 142 QRS: 124 T: 35 INTERPRETIVE STATEMENTS: Sinus tachycardia Otherwise normal ECG Compared to ECG 01/14/2019 15:42:42 Sinus rhythm no longer present Right-axis deviation no longer present Incomplete right bundle-branch block no longer present Electronically Signed On 06-07-23 17:02:36 CDT by Chip Ko
== END 2023-06-06 19:22 | disposition home or self-care (01) ==
LOC: ER 16:51
DX: T67.5XXA Heat exhaustion, unspecified, initial encounter (principal); E86.9 Volume depletion, unspecified; F17.210 Nicotine dependence, cigarettes, uncomplicated; I10 Essential (primary) hypertension
CPT/HCPCS: 96361; 93005; 87088; 85025; 81001; 87086; 80048; 36415; 83735; 82550; 85610; 80076; 84484; 83880; 71045; 96360; 99284; J7120; J7030

== ENCOUNTER 2023-07-29 16:09 | Emergency (ER) | payer OTHER, BC ==
--- OUTSIDE RECORDS SUMMARY | 2023-07-29 16:11 | XMS REPORT | Continuity of Care Document ---
:1990 Author Organization [facility] t Address [address] [place] [address] Care Team Providers Name Role Phone MOISES DUNAWAY Attending Clinician Unavailable AB SEGURA Admitting Clinician Unavailable Payers Payer Name Policy Type Policy Number Effective Date Expiration Date S ying BCBSTX PPO AND [id number] 2021 00:00:00 OUT OF STATE Problems This patient has no known problems. Allergies, Adverse Reactions, Alerts This patient has no known allergies or adverse reactions. Medications This patient has no known medications. Procedures This patient has no known procedures. Encounters Start End Encounter Admission Attending Care Care Encounter Source Date/Time Date/Time Type Type Clinicians Facility Department ID 2022-11-03 Outpatient [facility] [id number] [place] 07:18:32 [id number] Health 2022-11-03 2022-11-04 Emergency E EMELYN [facility] [address] [facility] 07:15:00 01:36:00 MOISES Results This patient has no known results.
[2023-07-29 17:17] LABS: Specific Gravity > 1.030 (1.005-1.030); Urine Bacteria None Seen /HPF (<20); Urine Bilirubin NEGATIVE (Negative); Urine Blood Negative (Negative); Urine Clarity Clear (Clear); Urine Color Yellow (Yellow); Urine Crystals Unidentified Few /HPF (None Seen); Urine Glucose NEGATIVE (Negative); Urine Mucus Slight /HPF (None Seen); Urine Protein TRACE (Negative); Urine RBC <5 /HPF (None Seen); Urine Urobilinogen Normal (Normal); Urine pH 5.5 (5.0-7.0)
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
[2023-07-29 17:59] VITALS: TEMP 97.7
[2023-07-29 18:01] VITALS: BP 138/82; O2SAT 99
== END 2023-07-29 17:30 | disposition home or self-care (01) ==
LOC: ER 16:09
DX: E86.9 Volume depletion, unspecified (principal); M54.50 Low back pain, unspecified; V49.49XA Driver injured in collision with other motor vehicles in traffic accident, initial encounter; I10 Essential (primary) hypertension; F32.A Depression, unspecified; F17.210 Nicotine dependence, cigarettes, uncomplicated
CPT/HCPCS: 81001; 99283